=== PATIENT | male | born 1995 | race Caucasian/White ===

== ENCOUNTER 2024-03-11 01:55 | Emergency (ER) | payer SELFPAY ==
[2024-03-11] MEDS: SODIUM CHLORIDE 0.9% 500 ML INFUS.BAG IV ONE ×2 (01:52→04:31)
[2024-03-11] MEDS: ASPIRIN 325 MG TABLET PO ONE (01:52)
[~2024-03-11 01:55] MED LIST: ASPIRIN 325 MG TABLET ONE
[2024-03-11 02:06] LABS: BASO % 0.2 % (0-2.0); EOS % 0.1 % (0-4.5); HEMATOCRIT 48.5 % (35.4-49); HEMOGLOBIN 16.5 GM/dL (11.7-16.9); LYMPH % 13.8 % (8-40); MCH 31.1 pg (25.7-33.7); MCHC 34.1 g/dl (32.0-35.9); MEAN CELL VOLUME 91.2 fl (80-96); MEAN PLT VOLUME 7.6 fl (7.5-11.1); MONO % 4.9 % (3.8-10.2); PLATELET COUNT 248 10^3/uL (134-434); RBC 5.32 M/mm3 (4.00-5.60); RDW 13.1 % (11.9-15.9); WHITE BLOOD COUNT 9.1 K/mm3 (4.0-10.0)
[2024-03-11 02:26] LABS: CHLORIDE 104 mmol/L (98-107); INR 0.94 (0.83-1.09); PROTHROMBIN TIME (PATIENT) 10.8 SEC (9.7-13.0); SODIUM 136 mmol/L (136-145)
[2024-03-11 02:28] LABS: ALBUMIN 4.8 g/dl (3.4-5.0); ANION GAP 10 mmol/L (4-13); BLOOD UREA NITROGEN 9.6 mg/dL (7-18); CO2 23 mmol/L (21-32); GLUCOSE,RANDOM 132 mg/dL (74-106)
[2024-03-11 02:29] LABS: ACTIVATED PTT 33.9 SECONDS (25.2-36.5); MAGNESIUM 2.3 mg/dL (1.8-2.4)
[2024-03-11 02:31] LABS: SGOT/AST 38 U/L (15-37); SGPT/ALT 81 U/L (13-61)
[2024-03-11 02:33] LABS: BILIRUBIN,TOTAL 0.3 mg/dL (0.2-1); TOT PROT 8.5 g/dl (6.4-8.2)
[2024-03-11 02:34] LABS: ALK PHOS 100 U/L (45-117)
[2024-03-11] MEDS ORDERED: FAMOTIDINE 20 MG TABLET ONE (02:55)
[2024-03-11] MEDS ORDERED: MAG HYDROX/AL HYDROX/SIMETH 30 ML UNIT-DOSE CUP ONE (02:55)
[2024-03-11 03:06] VITALS: RESP 18
[2024-03-11] MEDS: MAG HYDROX/AL HYDROX/SIMETH 30 ML UNIT-DOSE CUP PO ONE (03:06)
[2024-03-11] MEDS: FAMOTIDINE 10 MG TABLET PO ONE (03:06)
[2024-03-11 03:13] LABS: CALCIUM 9.5 mg/dL (8.5-10.1)
[2024-03-11 06:11] VITALS: BP 134/78; PULSE 80; TEMP 98.1
[2024-03-11 08:28] LABS: ERYTHROCYTE SEDIMENTATION RATE 10 mm/hr (0-10)
== END 2024-03-11 06:47 | disposition home or self-care (01) ==
LOC: JER 01:55
DX: R00.2 Palpitations (principal); R07.9 Chest pain, unspecified; R09.81 Nasal congestion; Z20.822 Contact with and (suspected) exposure to COVID-19
CPT/HCPCS: 0241U-QW; 36415; 71045-TC-FY; 80053; 82550; 82553; 83735; 84439; 84443; 84484; 85025; 85379; 85610; 85651; 85730; 86140; 93005; 93010; 99285-25